=== PATIENT | female | born 1940 | race Caucasian/White ===

== ENCOUNTER 2016-11-17 20:29 | Observation (INO) | payer MEDICARE, OTHER ==
[2016-11-17 20:37] VITALS: BMI 31.1
--- NOTE | 2016-11-17 21:05 | ED PDOC ---
Arrival/HPI - General Historian: Patient, Family (Daughter, who translated for patient) - History of Present Illness Time/Duration: 1 week Symptom Course: Worsening Quality: Throbbing Context: Home - General Chief Complaint: Dizziness/Lightheaded Time Seen by Provider: 11/17/16 20:40 - History of Present Illness Narrative History of Present Illness (Text): 11/17/16 20:59 A 76 year old female presents to the emergency department complaining of generalized weakness with a mild headache and dizziness for 1 week. History obtained through daughter who translated for patient. Patient reports her headache worsened today and describes it as a severe throbbing sensation with 2 episodes of near-syncope. Patient notes nausea when symptoms worsen and palpitations. She took Motrin with no improvement of symptoms. Patient denies any fever, chills, blurred vision, vomiting, diarrhea, abdominal pain, urinary symptoms, chest pain, shortness of breath, lower extremity weakness, numbness or tingling, or any other complaints. (Cara Kemp) Past Medical History - Provider Review Nursing Documentation Reviewed: Yes - Infectious Disease Hx of Infectious Diseases: None - Cardiac Hx Hypertension: Yes - Gastrointestinal Hx Gall Bladder Disease: Yes (gallstones) - Psychiatric Hx Substance Use: No - Surgical History Hx Hysterectomy: Yes - Anesthesia Hx Anesthesia: Yes Hx Anesthesia Reactions: No Hx Malignant Hyperthermia: No Family/Social History - Physician Review Nursing Documentation Reviewed: Yes Family/Social History: No Known Family HX Smoking Status: Never Smoked Hx Alcohol Use: No Hx Substance Use: No Allergies/Home Meds Allergies/Adverse Reactions: Allergies Penicillins Adverse Reaction (Verified 11/17/16 20:37) ANAPHYLAXIS Home Medications: Home Meds Medication Instructions Recorded Confirmed hydroCHLOROthiazide [Microzide] 25 mg PO DAILY 11/17/16 11/17/16 Review of Systems - Physician Review All systems were reviewed & negative as marked: Yes - Review of Systems Constitutional: Other (Generalized weakness). absent: Fevers, Night Sweats Eyes: absent: Vision Changes Respiratory: absent: SOB Cardiovascular: Palpitations, Other (Near-syncope). absent: Chest Pain Gastrointestinal: Nausea. absent: Abdominal Pain, Diarrhea, Vomiting Genitourinary Female: absent: Dysuria, Frequency, Hematuria, Urine Output Changes Neurological: Headache, Dizziness. absent: Focal Weakness (/numbness/tingling) Physical Exam Vital Signs Reviewed: Yes Temperature: Afebrile Blood Pressure: Normal Pulse: Regular Respiratory Rate: Normal Appearance: Positive for: Well-Appearing, Non-Toxic, Comfortable Pain Distress: None Mental Status: Positive for: Alert and Oriented X 3 Finger Stick Blood Glucose: 106 - Systems Exam Head: Present: Atraumatic, Normocephalic Pupils: Present: PERRL Extroacular Muscles: Present: EOMI Conjunctiva: Present: Injected (bilateral conjunctival injection) Mouth: Present: Moist Mucous Membranes Pharnyx: No: ERYTHEMA, EXUDATE, TONSILS ENLARGED Neck: Present: Normal Range of Motion, Other (Supple). No: JVD, Bruit Respiratory/Chest: Present: Clear to Auscultation, Good Air Exchange. No: Respiratory Distress, Accessory Muscle Use Cardiovascular: Present: Regular Rate and Rhythm, Normal S1, S2. No: Murmurs Abdomen: Present: Normal Bowel Sounds. No: Tenderness, Distention, Peritoneal Signs Back: Present: Normal Inspection Upper Extremity: Present: Normal Inspection, Normal ROM, NORMAL PULSES, Neurovascularly Intact. No: Cyanosis, Edema Lower Extremity: Present: Normal Inspection, NORMAL PULSES, Normal ROM, Neurovascularly Intact. No: Edema, CALF TENDERNESS Neurological: Present: GCS=15, CN II-XII Intact, Speech Normal Skin: Present: Warm, Dry, Normal Color. No: Rashes Psychiatric: Present: Alert, Oriented x 3, Normal Insight, Normal Concentration Vital Signs Temp Pulse Resp BP Pulse Ox 11/18/16 00:07 78 18 135/71 99 11/17/16 20:50 98.2 F 88 18 144/71 100 Medical Decision Making - Lab Interpretations I have reviewed the lab results: Yes ED Course and Treatment: I was available for consultation during PA evaluation. The chart was reviewed by me, and I agree with disposition. The documented history was done by the physician lead burner apprentice. The documented physical exam was done by the physician lead burner apprentice. The documented procedures were done by the physician lead burner apprentice. (Gabriel Gusman) 11/17/16 20:59 A 76 year old female with headache, Patient notes generalized weakness, dizziness, near-syncope, nausea and palpitations. Plan: -- Head CT: FINDINGS: Brain: There are small karen-ventricular foci of hypodensity, likely representing small vessel ischemic disease in a patient this age. The acuity of the white matter disease is indeterminate. The white-short differentiation is preserved demonstrating no acute territorial type infarct. There is prominence of the ventricles and sulci, compatible with atrophy. No acute intracranial hemorrhage is seen. Midline shift: There is no midline shift. Ventricles: See above. Bones/joints: Scattered small hypodense foci or lesions are identified within the skull. The calvarium demonstrates no evidence for a depressed fracture. Soft tissues: No acute abnormality. Vasculature: There is atherosclerotic calcification of the cavernous internal carotid arteries. Sinuses: There is polypoid mucosal thickening of the left sphenoid sinus. Mastoid air cells: No mastoid effusion. IMPRESSION: 1. No acute intracranial hemorrhage or acute territorial type infarct. 2. There are small kraen-ventricular foci of hypodensity, likely representing small vessel ischemic disease in a patient this age. 3. Atrophy. 4. Scattered small hypodense foci or lesions are identified within the skull. Correlation with prior studies is recommended. 5. Paranasal sinus disease is noted above. -- Chest xray: wnl -- EKG: NSR at 61 b/m no st elevations. -- cbc: wnl -- cmp; wnl -- Urinalysis: wnl -- Tylenol po -- Reassess and disposition Progress Notes: pt non toxic. stable vitals asa given. 11/18/16 00:[address] to dr[address] Mahan service; no return call. after 1.5 hours; still no answer; will now admit to hospitalist service. case discussed with dr. mills; will admit observational status to remote tele for near syncope, headache impression; dizziness, near syncope, generalized weakness admit observational status; remote tele (Cara eKmp) - Lab Interpretations Lab Results: 11/17/16 21:00 11/17/16 21:00 Lab Results 11/17/16 21:44: Urine Color Yellow, Urine Appearance Clear, Urine pH 7.0, Ur Specific [place] 1.010, Urine Protein Negative, Urine Glucose (UA) Negative, Urine Ketones Negative, Urine Blood Negative, Urine Nitrate Negative, Urine Bilirubin Negative, Urine Urobilinogen 0.2, Ur Leukocyte Esterase Trace H, Urine RBC Negative, Urine WBC 0 - 2 11/17/16 21:00: WBC 5.7, RBC 4.25, Hgb 11.9 L, Hct 34.9 L, MCV 82.1, MCH 28.0, MCHC 34.1, RDW 12.6, Plt Count 150, MPV 10.9, Gran % 47.8 L, Lymph % (Auto) 43.5 H, [place] % (Auto) 5.8, Eos % (Auto) 2.5, Baso % (Auto) 0.4, Gran # 2.70, Lymph # 2.5, [place] # 0.3, Eos # 0.1, Baso # 0.02 11/17/16 21:00: Sodium 140, Potassium 4.2, Chloride 101, Carbon Dioxide 31, Anion Gap 12, BUN 19, Creatinine 0.8, Est GFR ( Amer) > 60, Est GFR (Non- Af Amer) > 60, Random Glucose 97, Calcium 9.5, Total Bilirubin 0.6, AST 28, ALT 19, Alkaline Phosphatase 74, Lactate Dehydrogenase 458, Total Creatine Kinase 83 , Troponin I < 0.01, Total Protein 7.1, Albumin 4.0, Globulin 3.1, Albumin/ Globulin Ratio 1.3 11/17/16 20:55: POC Glucose (mg/dL) 106 - RAD Interpretation Radiology Orders: 11/17/16 20:49 HEAD W/O CONTRAST [CT] Stat CHEST PORTABLE [RAD] Stat - Medication Orders Current Medication Orders: Discontinued Medications Acetaminophen (Tylenol 325mg Tab) 975 mg PO STAT STA Stop: 11/17/16 23:32 Last Admin: 11/17/16 23:49 Dose: 975 mg MAR Pain/Vitals Document 11/17/16 23:49 RD (Rec: 11/17/16 23:49 RD [id number]) Pain Reassessment Is This A Pain ReAssessment? No Sleep Is patient sleeping during reassessment? No Presence of Pain Presence of Pain Yes Aspirin (Aspirin) 325 mg PO STAT STA Stop: 11/17/16 23:32 Last Admin: 11/17/16 23:49 Dose: 325 mg - Scribe Statement The provider has reviewed the documentation as recorded by the Scribe - Scribe Statement Ramona White Provider Scribe Attestation: All medical record entries made by the Scribe were at my direction and personally dictated by me. I have reviewed the chart and agree that the record accurately reflects my personal performance of the history, physical exam, medical decision making, and the department course for this patient. I have also personally directed, reviewed, and agree with the discharge instructions and disposition. (Cara Kemp) Disposition/Present on Arrival - Present on Arrival Any Indicators Present on Arrival: No History of DVT/PE: No History of Uncontrolled Diabetes: No Urinary Catheter: No History of Decub. Ulcer: No History Surgical Site Infection Following: None - Disposition Have Diagnosis and Disposition been Completed?: Yes Disposition Time: 01:00 Patient Plan: Observation - Disposition Diagnosis: Near syncope Disposition: HOSPITALIZED Condition: FAIR Forms: [facility] ([place]ian)
[2016-11-17 21:16] LABS: BASO # 0.02 K/mm3 (0.0-2.0); BASO % 0.4 % (0.0-3.0); EOS # 0.1 (0.0-0.7); EOS % 2.5 % (1.5-5.0); GRAN # 2.7 (1.4-6.5); GRAN % 47.8 % (50.0-68.0); HEMATOCRIT 34.9 % (36.0-48.0); LYMPH # 2.5 (1.2-3.4); LYMPH % 43.5 % (22.0-35.0); MEAN CELL VOLUME 82.1 fl (80.0-105.0); MEAN CORPUSCULAR HGB CONC 34.1 g/dl (31.0-37.0); MEAN PLATELET VOLUME 10.9 fl (7.0-11.0); MONO # 0.3 (0.1-0.6); MONO % 5.8 % (1.0-6.0); RED CELL DISTRIBUTION WIDTH 12.6 % (11.5-14.5); WHITE BLOOD COUNT 5.7 10^3/ul (4.5-11.0)
[2016-11-17 21:30] LABS: ALB/GLOB RATIO 1.3 (1.1-1.8); ALKALINE PHOSPHATASE 74 U/L (38-126); ALT/SGPT 19 U/L (7-56); AST/SGOT 28 U/L (14-36); BILIRUBIN,TOTAL 0.6 mg/dL (0.2-1.3); BLOOD UREA NITROGEN 19 mg/dL (7-21); CALCIUM 9.5 mg/dL (8.4-10.5); CARBON DIOXIDE 31 mmol/L (21-33); CHLORIDE 101 mmol/L (98-107); GFR AFRICAN-AMERICAN > 60; GLUCOSE,RANDOM 97 mg/dL (70-110); POTASSIUM 4.2 mmol/L (3.6-5.0); SODIUM 140 mmol/L (132-148); TOTAL PROTEIN 7.1 g/dL (5.8-8.3)
[2016-11-17 21:50] LABS: TROPONIN I < 0.01 ng/mL
[2016-11-17 22:00] LABS: URINE BILIRUBIN NEGATIVE (NEGATIVE); URINE BLOOD NEGATIVE (NEGATIVE); URINE GLUCOSE (UA) NEGATIVE (NEGATIVE); URINE KETONE NEGATIVE (NEGATIVE); URINE LEUKOCYTE ESTERASE TRACE Leu/uL (NEGATIVE); URINE PROTEIN NEGATIVE mg/dL (<30 mg/dL); URINE UROBILINOGEN 0.2 E.U./dL (<1 E.U./dL)
[2016-11-17 22:01] LABS: URINE APPEARANCE CLEAR (CLEAR); URINE COLOR YELLOW (YELLOW)
[2016-11-17 22:09] LABS: URINE RBC NEGATIVE /hpf (0-2); URINE WBC 0 - 2 /hpf (0-6)
--- NOTE | 2016-11-17 23:22 | CT ---
EXAM: CT Head Without Intravenous Contrast EXAM DATE/TIME: 11/17/2016 8:49 PM CLINICAL HISTORY: The patient age is 76 years old and is female; Pain; Headache; Additional info: Headache/near syncope Facility exam id and description: Ct heads head w/o contrast TECHNIQUE: Axial computed tomography images of the head/brain without intravenous contrast. All CT scans at this facility use one or more dose reduction techniques, viz.: automated exposure control; ma/kV adjustment per patient size (including targeted exams where dose is matched to indication; i.e. head); or iterative reconstruction technique. COMPARISON: No relevant prior studies available. FINDINGS: Brain: There are small karen-ventricular foci of hypodensity, likely representing small vessel ischemic disease in a patient this age. The acuity of the white matter disease is indeterminate. The white-short differentiation is preserved demonstrating no acute territorial type infarct. There is prominence of the ventricles and sulci, compatible with atrophy. No acute intracranial hemorrhage is seen. Midline shift: There is no midline shift. Ventricles: See above. Bones/joints: Scattered small hypodense foci or lesions are identified within the skull. The calvarium demonstrates no evidence for a depressed fracture. Soft tissues: No acute abnormality. Vasculature: There is atherosclerotic calcification of the cavernous internal carotid arteries. Sinuses: There is polypoid mucosal thickening of the left sphenoid sinus. Mastoid air cells: No mastoid effusion. IMPRESSION: 1. No acute intracranial hemorrhage or acute territorial type infarct. 2. There are small karen-ventricular foci of hypodensity, likely representing small vessel ischemic disease in a patient this age. 3. Atrophy. 4. Scattered small hypodense foci or lesions are identified within the skull. Correlation with prior studies is recommended. 5. Paranasal sinus disease is noted above.
--- NOTE | 2016-11-18 01:59 | CP.PCM.HP ---
History of Present Illness - History of Present Illness History of Present Illness: H/P For IM - TKS DO, PGY-1 CC: Headache HPI: 76 F PMHx pertinent for HTN presenting with a week's duration of pounding 7/10 headache that radiates from her neck to her head to her left ear that comes and goes, and is associated with symptoms of ringing in her ear. Patient's daughter at bedside providing translation. Patient states that she took ibuprofen at home, which made it better, and that it was starting to dissipate, but that it returned today so she came to the ED. Pt and her daughter deny loss of or change in vision, ams, los, loss of motor function. They further deny episodes like this in the past. Pt denies photophobia, phonophobia, neck rigidity. Pt denies f/ch/cp/sob/n/v/d/dysuria/frequency/urgency/hematuria/hematochezia/ hematemesis PSHx: Pt denies PMHx: HTN All: PCN SocHx: Pt denies etoh, tobacco, illicits Hosp: First time at this facility FamHx: Non-contributory Meds: HCTZ Present on Admission - Present on Admission Any Indicators Present on Admission: No Review of Systems - Hematologic/Lymphatic Additional comments: ROS: Constitutional: pt denies fever, chills, generalized weakness ENT: pt denies dysphagia, otalgia, hearing deficit, rhinorrhea Eyes: pt denies sudden loss of vision, diplopia, blurred vision MSK: pt denies muscle stiffness, joint pain, extremity cramping Cardio: pt denies sob, heart murmur, cp Pulm: pt denies cough, hemoptysis, wheeze GI: pt denies loss of appetite, abdominal pain, constipation, melena, n/v/d : pt denies burning on urination, urinary frequency, hematuria, urinary urgency Neuro: +SEE HPI; pt denies paresis, paresthesia, dizziness, numbness, tingling Derm: pt denies skin changes, lesions, nail changes Endo: pt denies intolerance to heat/cold, diaphoresis, night sweats, polydipsia Psych: pt denies anxiety, depression, mood changes Past Patient History - Infectious Disease Hx of Infectious Diseases: None - Past Social History Smoking Status: Never Smoked - CARDIAC Hx Hypertension: Yes - GASTROINTESTINAL Hx Gall Bladder Disease: Yes (gallstones) - PSYCHIATRIC Hx Substance Use: No - SURGICAL HISTORY Hx Hysterectomy: Yes - ANESTHESIA Hx Anesthesia: Yes Hx Anesthesia Reactions: No Hx Malignant Hyperthermia: No Meds Allergies/Adverse Reactions: Allergies Allergy/AdvReac Type Severity Reaction Status Date / Time Penicillins AdvReac ANAPHYLAXIS Verified 11/17/16 20:37 Physical Exam - Additional Findings Additional findings: Phys Exam: VS as below Constitutional: a&o x 4, nad Head and Neck: neck supple, no jvd, trachea midline, carotid midline, no cervical/head mass Eyes: delia, nonicteric sclera, eom intact ENT: auditory acuity grossly intact, throat not congested, no nasal deformity Cardio: rrr, no m/r/g, no carotid bruit, nml s1, s2 Pulm: no accessory muscle use, equal nml breath sounds bilaterally, ctab Abd: s/nt/nd, nbs x 4 q, no palpable masses Derm: no rashes, no ulcers, no lesions Extr: no edema, no cyanosis, no calf tenderness, no lesions, no varicosities Neuro: cn II-XII grossly intact, ue and le 5/5 muscle strength bilaterally, no los ue, le bilaterally and core Results - Vital Signs Recent Vital Signs: Last Vital Signs Temp 98.2 F 11/17/16 20:50 Pulse 78 11/18/16 00:07 Resp 18 11/18/16 00:07 BP 135/71 11/18/16 00:07 Pulse Ox 99 11/18/16 00:07 - Labs Result Diagrams: 11/17/16 21:00 11/17/16 21:00 Labs: Laboratory Results - last 24 hr 11/17/16 11/17/16 11/17/16 20:55 21:00 21:00 WBC 5.7 RBC 4.25 Hgb 11.9 L Hct 34.9 L MCV 82.1 MCH 28.0 MCHC 34.1 RDW 12.6 Plt Count 150 MPV 10.9 Gran % 47.8 L Lymph % (Auto) 43.5 H [place] % (Auto) 5.8 Eos % (Auto) 2.5 Baso % (Auto) 0.4 Gran # 2.70 Lymph # 2.5 [place] # 0.3 Eos # 0.1 Baso # 0.02 Sodium 140 Potassium 4.2 Chloride 101 Carbon Dioxide 31 Anion Gap 12 BUN 19 Creatinine 0.8 Est GFR ( Amer) > 60 Est GFR (Non-Af Amer) > 60 POC Glucose (mg/dL) 106 Random Glucose 97 Calcium 9.5 Total Bilirubin 0.6 AST 28 ALT 19 Alkaline Phosphatase 74 Lactate Dehydrogenase 458 Total Creatine Kinase 83 Troponin I < 0.01 Total Protein 7.1 Albumin 4.0 Globulin 3.1 Albumin/Globulin Ratio 1.3 Urine Color Urine Appearance Urine pH Ur Specific [place] Urine Protein Urine Glucose (UA) Urine Ketones Urine Blood Urine Nitrate Urine Bilirubin Urine Urobilinogen Ur Leukocyte Esterase Urine RBC Urine WBC 11/17/16 21:44 WBC RBC Hgb Hct MCV MCH MCHC RDW Plt Count MPV Gran % Lymph % (Auto) [place] % (Auto) Eos % (Auto) Baso % (Auto) Gran # Lymph # [place] # Eos # Baso # Sodium Potassium Chloride Carbon Dioxide Anion Gap BUN Creatinine Est GFR ( Amer) Est GFR (Non-Af Amer) POC Glucose (mg/dL) Random Glucose Calcium Total Bilirubin AST ALT Alkaline Phosphatase Lactate Dehydrogenase Total Creatine Kinase Troponin I Total Protein Albumin Globulin Albumin/Globulin Ratio Urine Color Yellow Urine Appearance Clear Urine pH 7.0 Ur Specific [place] 1.010 Urine Protein Negative Urine Glucose (UA) Negative Urine Ketones Negative Urine Blood Negative Urine Nitrate Negative Urine Bilirubin Negative Urine Urobilinogen 0.2 Ur Leukocyte Esterase Trace H Urine RBC Negative Urine WBC 0 - 2 Assessment & Plan - Assessment and Plan (Free Text) Assessment: A/P 76 F with pounding, unilateral headache without photo/phonophobia. No neurological deficits Headache - Consider herpes zoster prodrome, trigeminal neuralgia and giant cell arteritis - VERY low suspicion for GCA - Can consider oral dose of prednisone - Initial labs and imaging insignificant - Consider neurological c/s VS o/p f/u - f/u ESR Hx/O HTN - Continue home HCTZ TKS DO PGY - 1. JANES Chris
[2016-11-18 02:08] VITALS: O2SAT 100
[2016-11-18] MEDS: Pantoprazole 40 mg EC Tab PO SCH (05:32)
--- NOTE | 2016-11-18 08:22 | RAD ---
HISTORY: palpitations, near syncope COMPARISON: No prior. FINDINGS: LUNGS: The lungs are clear. PLEURA: No significant pleural effusion identified, no pneumothorax apparent. CARDIOVASCULAR: Normal. OSSEOUS STRUCTURES: No significant abnormalities. VISUALIZED UPPER ABDOMEN: Normal. OTHER FINDINGS: None. IMPRESSION: No active pulmonary disease.
[2016-11-18 08:59] LABS: BASO # 0.02 K/mm3 (0.0-2.0); BASO % 0.4 % (0.0-3.0); EOS # 0.1 (0.0-0.7); EOS % 2.6 % (1.5-5.0); GRAN # 2.3 (1.4-6.5); GRAN % 43.1 % (50.0-68.0); HEMATOCRIT 34.3 % (36.0-48.0); LYMPH # 2.6 (1.2-3.4); LYMPH % 47.9 % (22.0-35.0); MEAN CELL VOLUME 82.7 fl (80.0-105.0); MEAN CORPUSCULAR HGB CONC 33.8 g/dl (31.0-37.0); MEAN PLATELET VOLUME 10.8 fl (7.0-11.0); MONO # 0.3 (0.1-0.6); RED CELL DISTRIBUTION WIDTH 12.7 % (11.5-14.5); WHITE BLOOD COUNT 5.3 10^3/ul (4.5-11.0)
--- NOTE | 2016-11-18 09:10 | CARD ---
APPROVED REPORT EKG Measurement Heart [id number] <Conclusion> Normal sinus rhythm Normal ECG
[2016-11-18 09:14] LABS: ALB/GLOB RATIO 1.2 (1.1-1.8); ALKALINE PHOSPHATASE 70 U/L (38-126); ALT/SGPT 26 U/L (7-56); AST/SGOT 24 U/L (14-36); BILIRUBIN,TOTAL 0.8 mg/dL (0.2-1.3); BLOOD UREA NITROGEN 17 mg/dL (7-21); CALCIUM 9.4 mg/dL (8.4-10.5); CARBON DIOXIDE 29 mmol/L (21-33); CHLORIDE 103 mmol/L (98-107); GFR AFRICAN-AMERICAN > 60; GLUCOSE,RANDOM 82 mg/dL (70-110); MAGNESIUM 1.8 mg/dL (1.7-2.2); PHOSPHOROUS 4.4 mg/dL (2.5-4.5); POTASSIUM 3.8 mmol/L (3.6-5.0); SODIUM 141 mmol/L (132-148); TOTAL PROTEIN 6.7 g/dL (5.8-8.3)
--- NOTE | 2016-11-18 11:23 | CP.PCM.CON ---
<Anjana Michael - Last Filed: 11/18/16 12:09> History of Present Illness - History of Present Illness History of Present Illness: Neurology Consult Note for Julio César Burgos PGY2 Reason for consult: Headache/tinnitus This is a 76Y female with PMH of HTN here for headache x 1 week. Patient reportedly speaks Swahili only and family is not at bedside. Nurse who speaks Swahli at bedside for communication. The headache is pounding in nature and radiated from L forehead to back of neck. It is intermittent in nature and is not associated with aura, vision changes, weakness, numbness/tingling. She does have dizziness when she has headache. It is described as more of a lightheadedness rather than vertigo. Patient does complain of tinnitus which is constant, but denies decreased hearing. She reports her headache is gone now. PMH: HTN PSH: Denies Home meds: HCTZ All: Penicillin SH: Denies EtOH, drug or tobacco use Review of Systems - Review of Systems Review of Systems: + Headache, tinnitus Negative for CP, SOB, n/v/d, numbness/tingling, fever or chills. Past Patient History - Infectious Disease Hx of Infectious Diseases: None - Past Social History Smoking Status: Unknown If Ever Smoked - CARDIAC Hx Hypertension: Yes - MUSCULOSKELETAL/RHEUMATOLOGICAL Hx Falls: (unknown) - GASTROINTESTINAL Hx Gall Bladder Disease: Yes (gallstones) - PSYCHIATRIC Hx Substance Use: No - SURGICAL HISTORY Hx Hysterectomy: Yes - ANESTHESIA Hx Anesthesia: Yes Hx Anesthesia Reactions: No Hx Malignant Hyperthermia: No Meds Allergies/Adverse Reactions: Allergies Allergy/AdvReac Type Severity Reaction Status Date / Time Penicillins AdvReac ANAPHYLAXIS Verified 11/17/16 20:37 - Medications Medications: Current Medications Heparin Sodium (Porcine) (Heparin) 5,000 units SC Q8 RASHARD PRN Reason: Protocol Last Admin: 11/18/16 05:32 Dose: 5,000 units Hydrochlorothiazide (Hydrodiuril) 25 mg PO DAILY RASHARD Pantoprazole Sodium (Protonix Ec Tab) 40 mg PO 0600 RASHARD Last Admin: 11/18/16 05:32 Dose: 40 mg Physical Exam - Constitutional Appears: No Acute Distress - Head Exam Head Exam: ATRAUMATIC, NORMAL INSPECTION, NORMOCEPHALIC - Eye Exam Eye Exam: EOMI, Normal appearance, PERRL Pupil Exam: NORMAL ACCOMODATION, PERRL - ENT Exam ENT Exam: Mucous Membranes Moist - Respiratory Exam Respiratory Exam: Clear to Auscultation Bilateral, NORMAL BREATHING PATTERN. absent: Rales, Rhonchi, Wheezes - Cardiovascular Exam Cardiovascular Exam: REGULAR RHYTHM, +S1, +S2. absent: Gallop, Rubs, Systolic Murmur - GI/Abdominal Exam GI & Abdominal Exam: Normal Bowel Sounds, Soft. absent: Guarding, Rebound, Rigid, Tenderness - Extremities Exam Extremities exam: Positive for: normal inspection. Negative for: calf tenderness, pedal edema - Neurological Exam Neurological exam: Alert, CN II-XII Intact - Psychiatric Exam Psychiatric exam: Normal Affect, Normal Mood - Skin Skin Exam: Dry, Intact, Normal Color, Warm Results - Vital Signs Recent Vital Signs: Last Vital Signs Temp 97.5 F L 11/18/16 04:11 Pulse 52 L 11/18/16 04:11 Resp 18 11/18/16 04:11 BP 120/69 11/18/16 04:11 Pulse Ox 100 11/18/16 02:07 - Labs Result Diagrams: 11/18/16 08:30 11/18/16 08:30 Labs: Laboratory Results - last 24 hr 11/18/16 11/18/16 11/18/16 02:28 08:30 08:30 WBC 5.3 RBC 4.15 Hgb 11.6 L Hct 34.3 L MCV 82.7 MCH 28.0 MCHC 33.8 RDW 12.7 Plt Count 150 MPV 10.8 Gran % 43.1 L Lymph % (Auto) 47.9 H [place] % (Auto) 6.0 Eos % (Auto) 2.6 Baso % (Auto) 0.4 Gran # 2.30 Lymph # 2.6 [place] # 0.3 Eos # 0.1 Baso # 0.02 ESR 15 Sodium 141 Potassium 3.8 Chloride 103 Carbon Dioxide 29 Anion Gap 13 BUN 17 Creatinine 0.8 Est GFR ( Amer) > 60 Est GFR (Non-Af Amer) > 60 Random Glucose 82 Calcium 9.4 Phosphorus 4.4 Magnesium 1.8 Total Bilirubin 0.8 AST 24 ALT 26 Alkaline Phosphatase 70 Total Protein 6.7 Albumin 3.7 Globulin 3.0 Albumin/Globulin Ratio 1.2 Assessment & Plan - Assessment and Plan (Free Text) Assessment: This is a 76Y female with PMH of HTN here for headache x 1 week. Headache described as migraines without aura relieved with ibuprofen. Head CT noted to be negative for acute pathology. ESR within normal limits. Plan: - CRP - Fiorecet prn headache - Physical therapy - Occupational therapy Case seen, discussed and reviewed with Dr. Ness. Julio César Michael PGY2 - Date & Time Date: 11/18/16 Time: 12:16 <Memo Ness - Last Filed: 11/18/16 13:09> Meds - Medications Medications: Current Medications Acetaminophen/Butalbital/Caffeine (Fioricet) 1 tab PO Q4H PRN PRN Reason: Headache Heparin Sodium (Porcine) (Heparin) 5,000 units SC Q8 RASHARD PRN Reason: Protocol Last Admin: 11/18/16 05:32 Dose: 5,000 units Hydrochlorothiazide (Hydrodiuril) 25 mg PO DAILY [facility] Last Admin: 11/18/16 11:38 Dose: 25 mg Pantoprazole Sodium (Protonix Ec Tab) 40 mg PO 0600 [facility] Last Admin: 11/18/16 05:32 Dose: 40 mg Results - Vital Signs Recent Vital Signs: Last Vital Signs Temp 97.1 F L 11/18/16 12:00 Pulse 55 L 11/18/16 12:00 Resp 20 11/18/16 12:00 BP 140/72 11/18/16 12:00 Pulse Ox 100 11/18/16 02:07 - Labs Result Diagrams: 11/18/16 08:30 11/18/16 08:30 Labs: Laboratory Results - last 24 hr 11/18/16 11/18/16 11/18/16 02:28 08:30 08:30 WBC 5.3 RBC 4.15 Hgb 11.6 L Hct 34.3 L MCV 82.7 MCH 28.0 MCHC 33.8 RDW 12.7 Plt Count 150 MPV 10.8 Gran % 43.1 L Lymph % (Auto) 47.9 H [place] % (Auto) 6.0 Eos % (Auto) 2.6 Baso % (Auto) 0.4 Gran # 2.30 Lymph # 2.6 [place] # 0.3 Eos # 0.1 Baso # 0.02 ESR 15 Sodium 141 Potassium 3.8 Chloride 103 Carbon Dioxide 29 Anion Gap 13 BUN 17 Creatinine 0.8 Est GFR ( Amer) > 60 Est GFR (Non-Af Amer) > 60 Random Glucose 82 Calcium 9.4 Phosphorus 4.4 Magnesium 1.8 Total Bilirubin 0.8 AST 24 ALT 26 Alkaline Phosphatase 70 Total Protein 6.7 Albumin 3.7 Globulin 3.0 Albumin/Globulin Ratio 1.2 Attending/Attestation - Attestation I have personally seen and examined this patient.: Yes I have fully participated in the care of the patient.: Yes I have reviewed all pertinent clinical information: Yes
[2016-11-18] MEDS ORDERED: Apap-Butalbital-Caffeine 325-50-40mg Tab PO PRN (12:17)
[2016-11-19] MEDS: Pantoprazole 40 mg EC Tab PO SCH (06:27)
[2016-11-19 08:51] LABS: BASO # 0.02 K/mm3 (0.0-2.0); BASO % 0.4 % (0.0-3.0); EOS # 0.2 (0.0-0.7); EOS % 3.6 % (1.5-5.0); GRAN # 2.31 (1.4-6.5); HEMATOCRIT 35.7 % (36.0-48.0); LYMPH # 2.6 (1.2-3.4); LYMPH % 46.7 % (22.0-35.0); MEAN CELL VOLUME 82.1 fl (80.0-105.0); MEAN CORPUSCULAR HEMOGLOBIN 27.8 pg (25.0-35.0); MEAN CORPUSCULAR HGB CONC 33.9 g/dl (31.0-37.0); MEAN PLATELET VOLUME 11.3 fl (7.0-11.0); MONO # 0.4 (0.1-0.6); MONO % 7.3 % (1.0-6.0); RED CELL DISTRIBUTION WIDTH 12.7 % (11.5-14.5); WHITE BLOOD COUNT 5.5 10^3/ul (4.5-11.0)
[2016-11-19 10:44] LABS: ALB/GLOB RATIO 1.4 (1.1-1.8); ALKALINE PHOSPHATASE 79 U/L (38-126); ALT/SGPT 15 U/L (7-56); AST/SGOT 22 U/L (14-36); BILIRUBIN,TOTAL 0.7 mg/dL (0.2-1.3); BLOOD UREA NITROGEN 18 mg/dL (7-21); CARBON DIOXIDE 24 mmol/L (21-33); CHLORIDE 109 mmol/L (98-107); GFR AFRICAN-AMERICAN > 60; GLUCOSE,RANDOM 80 mg/dL (70-110); MAGNESIUM 1.7 mg/dL (1.7-2.2); PHOSPHOROUS 3.8 mg/dL (2.5-4.5); POTASSIUM 4.1 mmol/L (3.6-5.0); SODIUM 146 mmol/L (132-148); TOTAL PROTEIN 6.4 g/dL (5.8-8.3)
[2016-11-19 12:16] VITALS: BP 133/67; RESP 18; TEMP 98.1
--- NOTE | 2016-11-19 14:02 | CP.PCM.DIS ---
<MAITE RUBIN - Last Filed: 11/19/16 13:55> Provider - Provider Date of Admission: 11/18/16 01:00 Attending physician: Geraldo Forrest MD Consults: Neuro: Grover Time Spent in preparation of Discharge (in minutes): 45 Hospital Course - Lab Results Lab Results: Most Recent Lab Values WBC 5.5 10^3/ul (4.5-11.0) 11/19/16 08:00 RBC 4.35 10^6/uL (3.5-6.1) 11/19/16 08:00 Hgb 12.1 g/dL (12.0-16.0) 11/19/16 08:00 Hct 35.7 % (36.0-48.0) L 11/19/16 08:00 MCV 82.1 fl (80.0-105.0) 11/19/16 08:00 MCH 27.8 pg (25.0-35.0) 11/19/16 08:00 MCHC 33.9 g/dl (31.0-37.0) 11/19/16 08:00 RDW 12.7 % (11.5-14.5) 11/19/16 08:00 Plt Count 154 10^3/uL (120.0-450.0) 11/19/16 08:00 MPV 11.3 fl (7.0-11.0) H 11/19/16 08:00 Gran % 42.0 % (50.0-68.0) L 11/19/16 08:00 Lymph % (Auto) 46.7 % (22.0-35.0) H 11/19/16 08:00 [place] % (Auto) 7.3 % (1.0-6.0) H 11/19/16 08:00 Eos % (Auto) 3.6 % (1.5-5.0) 11/19/16 08:00 Baso % (Auto) 0.4 % (0.0-3.0) 11/19/16 08:00 Gran # 2.31 (1.4-6.5) 11/19/16 08:00 Lymph # 2.6 (1.2-3.4) 11/19/16 08:00 [place] # 0.4 (0.1-0.6) 11/19/16 08:00 Eos # 0.2 (0.0-0.7) 11/19/16 08:00 Baso # 0.02 K/mm3 (0.0-2.0) 11/19/16 08:00 ESR 15 mm/hr (0.0-20.0) 11/18/16 02:28 Sodium 146 mmol/L (132-148) 11/19/16 08:00 Potassium 4.1 mmol/L (3.6-5.0) 11/19/16 08:00 Chloride 109 mmol/L (98-107) H 11/19/16 08:00 Carbon Dioxide 24 mmol/L (21-33) 11/19/16 08:00 Anion Gap 17 (10-20) 11/19/16 08:00 BUN 18 mg/dL (7-21) 11/19/16 08:00 Creatinine 0.9 mg/dL (0.5-1.4) 11/19/16 08:00 Est GFR ( Amer) > 60 11/19/16 08:00 Est GFR (Non-Af Amer) > 60 11/19/16 08:00 POC Glucose (mg/dL) 106 mg/dL (65-110) 11/17/16 20:55 Random Glucose 80 mg/dL (70-110) 11/19/16 08:00 Calcium 10.0 mg/dL (8.4-10.5) 11/19/16 08:00 Phosphorus 3.8 mg/dL (2.5-4.5) 11/19/16 08:00 Magnesium 1.7 mg/dL (1.7-2.2) 11/19/16 08:00 Total Bilirubin 0.7 mg/dL (0.2-1.3) 11/19/16 08:00 AST 22 U/L (14-36) 11/19/16 08:00 ALT 15 U/L (7-56) 11/19/16 08:00 Alkaline Phosphatase 79 U/L (38-126) 11/19/16 08:00 Lactate Dehydrogenase 458 U/L (333-699) 11/17/16 21:00 Total Creatine Kinase 83 U/L (35-230) 11/17/16 21:00 Troponin I < 0.01 ng/mL 11/17/16 21:00 C-React Prot High Sens 3.89 mg/L (1.00-3.00) H 11/19/16 06:00 Total Protein 6.4 g/dL (5.8-8.3) 11/19/16 08:00 Albumin 3.7 g/dL (3.0-4.8) 11/19/16 08:00 Globulin 2.7 gm/dL 11/19/16 08:00 Albumin/Globulin Ratio 1.4 (1.1-1.8) 11/19/16 08:00 Urine Color Yellow (YELLOW) 11/17/16 21:44 Urine Appearance Clear (CLEAR) 11/17/16 21:44 Urine pH 7.0 (4.7-8.0) 11/17/16 21:44 Ur Specific Thayer 1.010 (1.005-1.035) 11/17/16 21:44 Urine Protein Negative mg/dL (<30 mg/dL) 11/17/16 21:44 Urine Glucose (UA) Negative mg/dL (NEGATIVE) 11/17/16 21:44 Urine Ketones Negative mg/dL (NEGATIVE) 11/17/16 21:44 Urine Blood Negative (NEGATIVE) 11/17/16 21:44 Urine Nitrate Negative (NEGATIVE) 11/17/16 21:44 Urine Bilirubin Negative (NEGATIVE) 11/17/16 21:44 Urine Urobilinogen 0.2 E.U./dL (<1 E.U./dL) 11/17/16 21:44 Ur Leukocyte Esterase Trace Lis/uL (NEGATIVE) H 11/17/16 21:44 Urine RBC Negative /hpf (0-2) 11/17/16 21:44 Urine WBC 0 - 2 /hpf (0-6) 11/17/16 21:44 - Hospital Course Hospital Course: 76 F PMHx pertinent for HTN presented with a week's duration of pounding 7/10 headache that radiated from her neck to her head to her left ear that comes and goes, and is associated with symptoms of ringing in her ear. Patient's daughter at bedside provided translation. Patient stated that she took ibuprofen at home, which made it better, and that it was starting to dissipate, but that it returned so she came to the ED. Pt and her daughter deny loss of or change in vision, ams, los, loss of motor function. They further deny episodes like this in the past. Pt denied photophobia, phonophobia, neck rigidity. In the ED, labs and imaging were obtained. Labs were unremarkable Head CT showed no acute intracranial hemorrhage, small vessel ischemic disease, atrophy, scattered small hypodense foci/lesions in skull. EKG and CXR were normal. Pt was admitted for evaluation and treatment for pounding, unilateral headache without photo/phonophobia. Neuro was consulted and recommended Fiorecet prn headache and PT/OT. Pt was seen and examined at bedside today. Pt states that her headache had resolved and controlled well with medications. Pt did c/o of tinnitus. Pt denied CP, SOB, n/v/d, fever, chills, abdominal pain, dizziness, or fatigue. Pt medically stable and discharged today. Pt will resume home medications and given Rx for fiorocet. Discharge Exam - Head Exam Head Exam: ATRAUMATIC, NORMAL INSPECTION, NORMOCEPHALIC - Eye Exam Eye Exam: EOMI, PERRL - ENT Exam ENT Exam: Mucous Membranes Moist - Neck Exam Neck exam: Full Rom - Respiratory Exam Respiratory Exam: Clear to PA & Lateral. absent: Rales, Rhonchi, Wheezes, Respiratory Distress - Cardiovascular Exam Cardiovascular Exam: RRR. absent: Gallop, Rubs - GI/Abdominal Exam GI & Abdominal Exam: Soft. absent: Firm, Guarding, Tenderness - Neurological Exam Neurological exam: Alert, Oriented x3 - Psychiatric Exam Psychiatric exam: Normal Affect, Normal Mood - Skin Skin Exam: Dry, Intact, Normal Color Discharge Plan - Discharge Medications Prescriptions: Acetaminophen/Butalbital/Caf [Fioricet] 1 tab PO Q4H PRN #5 tab PRN Reason: Headache - Follow Up Plan Condition: FAIR Disposition: HOME/ ROUTINE Instructions: Viral Pneumonia (GEN), Influenza (GEN), How To Wash Your Hands ( GEN), Hypertension (GEN), Near Syncope (ED), Fall Prevention (DC) Additional Instructions: 1. Follow up with PMD within 1 week 2. Follow up with neurology within 1 week 3. Take medications as prescribed 4. Return to ED if symptoms worsen Referrals: Sp Ness MD [Staff Provider] - <Gerald Salinas - Last Filed: 11/20/16 07:56> Provider - Provider Date of Admission: 11/18/16 01:00 Attending physician: Geraldo Forrest MD covering for dr forrest to go home today as per neuros ok walking well seen w/ family wanting to take her home discussed w/ resident and nurse and family should follow up w/ pmd in next 3 days went over meds w/ resident Hospital Course - Lab Results Lab Results: Most Recent Lab Values WBC 5.5 10^3/ul (4.5-11.0) 11/19/16 08:00 RBC 4.35 10^6/uL (3.5-6.1) 11/19/16 08:00 Hgb 12.1 g/dL (12.0-16.0) 11/19/16 08:00 Hct 35.7 % (36.0-48.0) L 11/19/16 08:00 MCV 82.1 fl (80.0-105.0) 11/19/16 08:00 MCH 27.8 pg (25.0-35.0) 11/19/16 08:00 MCHC 33.9 g/dl (31.0-37.0) 11/19/16 08:00 RDW 12.7 % (11.5-14.5) 11/19/16 08:00 Plt Count 154 10^3/uL (120.0-450.0) 11/19/16 08:00 MPV 11.3 fl (7.0-11.0) H 11/19/16 08:00 Gran % 42.0 % (50.0-68.0) L 11/19/16 08:00 Lymph % (Auto) 46.7 % (22.0-35.0) H 11/19/16 08:00 [place] % (Auto) 7.3 % (1.0-6.0) H 11/19/16 08:00 Eos % (Auto) 3.6 % (1.5-5.0) 11/19/16 08:00 Baso % (Auto) 0.4 % (0.0-3.0) 11/19/16 08:00 Gran # 2.31 (1.4-6.5) 11/19/16 08:00 Lymph # 2.6 (1.2-3.4) 11/19/16 08:00 [place] # 0.4 (0.1-0.6) 11/19/16 08:00 Eos # 0.2 (0.0-0.7) 11/19/16 08:00 Baso # 0.02 K/mm3 (0.0-2.0) 11/19/16 08:00 ESR 15 mm/hr (0.0-20.0) 11/18/16 02:28 Sodium 146 mmol/L (132-148) 11/19/16 08:00 Potassium 4.1 mmol/L (3.6-5.0) 11/19/16 08:00 Chloride 109 mmol/L (98-107) H 11/19/16 08:00 Carbon Dioxide 24 mmol/L (21-33) 11/19/16 08:00 Anion Gap 17 (10-20) 11/19/16 08:00 BUN 18 mg/dL (7-21) 11/19/16 08:00 Creatinine 0.9 mg/dL (0.5-1.4) 11/19/16 08:00 Est GFR ( Amer) > 60 11/19/16 08:00 Est GFR (Non-Af Amer) > 60 11/19/16 08:00 POC Glucose (mg/dL) 106 mg/dL (65-110) 11/17/16 20:55 Random Glucose 80 mg/dL (70-110) 11/19/16 08:00 Calcium 10.0 mg/dL (8.4-10.5) 11/19/16 08:00 Phosphorus 3.8 mg/dL (2.5-4.5) 11/19/16 08:00 Magnesium 1.7 mg/dL (1.7-2.2) 11/19/16 08:00 Total Bilirubin 0.7 mg/dL (0.2-1.3) 11/19/16 08:00 AST 22 U/L (14-36) 11/19/16 08:00 ALT 15 U/L (7-56) 11/19/16 08:00 Alkaline Phosphatase 79 U/L (38-126) 11/19/16 08:00 Lactate Dehydrogenase 458 U/L (333-699) 11/17/16 21:00 Total Creatine Kinase 83 U/L (35-230) 11/17/16 21:00 Troponin I < 0.01 ng/mL 11/17/16 21:00 C-React Prot High Sens 3.89 mg/L (1.00-3.00) H 11/19/16 06:00 Total Protein 6.4 g/dL (5.8-8.3) 11/19/16 08:00 Albumin 3.7 g/dL (3.0-4.8) 11/19/16 08:00 Globulin 2.7 gm/dL 11/19/16 08:00 Albumin/Globulin Ratio 1.4 (1.1-1.8) 11/19/16 08:00 Urine Color Yellow (YELLOW) 11/17/16 21:44 Urine Appearance Clear (CLEAR) 11/17/16 21:44 Urine pH 7.0 (4.7-8.0) 11/17/16 21:44 Ur Specific [place] 1.010 (1.005-1.035) 11/17/16 21:44 Urine Protein Negative mg/dL (<30 mg/dL) 11/17/16 21:44 Urine Glucose (UA) Negative mg/dL (NEGATIVE) 11/17/16 21:44 Urine Ketones Negative mg/dL (NEGATIVE) 11/17/16 21:44 Urine Blood Negative (NEGATIVE) 11/17/16 21:44 Urine Nitrate Negative (NEGATIVE) 11/17/16 21:44 Urine Bilirubin Negative (NEGATIVE) 11/17/16 21:44 Urine Urobilinogen 0.2 E.U./dL (<1 E.U./dL) 11/17/16 21:44 Ur Leukocyte Esterase Trace Lis/uL (NEGATIVE) H 11/17/16 21:44 Urine RBC Negative /hpf (0-2) 11/17/16 21:44 Urine WBC 0 - 2 /hpf (0-6) 11/17/16 21:44
[2016-11-19 16:09] VITALS: PULSE 82
== END 2016-11-19 16:22 | disposition home or self-care (01) ==
LOC: ED 20:29 → ERH 11-18 01:00 → 2RNO 11-18 03:49
PROVIDERS: ADMIT Internal Medicine; ATTEND Internal Medicine
DX: G43.009 Migraine without aura, not intractable, without status migrainosus (principal); I10 Essential (primary) hypertension; Z88.0 Allergy status to penicillin
CPT/HCPCS: 36415; 70450; 71010; 80053; 81001; 82550; 82948; 83615; 83735; 84100; 84484; 85025; 85651; 86140; 87086; 93005; 97116; 97161; 99285; G0378; G8978; G8979; G8980; J1644

== ENCOUNTER 2018-03-03 11:45 | Emergency (ER) | payer MEDICARE, OTHER ==
[2018-03-03 11:45] VITALS: BMI 31.1
[2018-03-03] MEDS ORDERED: Sodium Chloride 0.9% 1,000 ML IV SCH (12:45)
--- NOTE | 2018-03-03 13:04 | ED PDOC ---
Arrival/HPI - General Chief Complaint: Headache Historian: Patient - History of Present Illness Narrative History of Present Illness (Text): 03/03/18 12:38 78 year old female, whose past medical history includes hypertension, presents to the emergency department accompanied by family complaining of worsening headache, dizziness, and generalized weakness over the past 1-2 weeks. Patient also reports intermittent cough. Patient has a history of headaches. She recently had a endoscopy and a colonoscopy that were negative. Patient recently was in [place] 4 months ago and was given Lariam once a week for Malaria while there. Patient took Aleve with relief. Patient did not get her flu shot this year. Patient denies any fever, chills, chest pain, shortness of breath, nausea, vomiting, diarrhea, urinary symptoms, back pain, neck pain, or any other com plaints. Time/Duration: Other (1-2 weeks) Symptom Onset: Gradual Symptom Course: Worsening Activities at Onset: Light Context: Home Past Medical History - Provider Review Nursing Documentation Reviewed: Yes - Infectious Disease Hx of Infectious Diseases: None - Reproductive Menopause: Yes - Cardiac Hx Cardiac Disorders: Yes Hx Hypertension: Yes - Pulmonary Hx Respiratory Disorders: No - Neurological Hx Neurological Disorder: No - HEENT Hx HEENT Disorder: No - Renal Hx Renal Disorder: No - Endocrine/Metabolic Hx Endocrine Disorders: No - Hematological/Oncological Hx Blood Disorders: No - Integumentary Hx Dermatological Disorder: No - Musculoskeletal/Rheumatological Hx Musculoskeletal Disorders: Yes Hx Falls: (unknown) Hx Osteoporosis: Yes - Gastrointestinal Hx Gastrointestinal Disorders: Yes Hx Gall Bladder Disease: Yes (gallstones) Hx Gastroesophageal Reflux: Yes - Genitourinary/Gynecological Hx Genitourinary Disorders: No - Psychiatric Hx Psychophysiologic Disorder: No Hx Substance Use: No - Surgical History Hx Cholecystectomy: Yes Hx Hysterectomy: Yes - Anesthesia Hx Anesthesia: Yes Hx Anesthesia Reactions: No Hx Malignant Hyperthermia: No Family/Social History - Physician Review Nursing Documentation Reviewed: Yes Family/Social History: No Known Family HX Smoking Status: Unknown If Ever Smoked Hx Alcohol Use: No Hx Substance Use: No Allergies/Home Meds Allergies/Adverse Reactions: Allergies Penicillins Adverse Reaction (Verified 11/17/16 20:37) ANAPHYLAXIS Home Medications: Home Meds Medication Instructions Recorded Confirmed hydroCHLOROthiazide [Microzide] 25 mg PO DAILY 11/17/16 03/03/18 Alendronate [Fosamax] 1 tab PO QWK 12/26/18 01/12/19 Review of Systems - Physician Review All systems were reviewed & negative as marked: Yes - Review of Systems Constitutional: absent: Fevers, Other (Chills) Respiratory: Cough. absent: SOB Cardiovascular: absent: Chest Pain Gastrointestinal: absent: Abdominal Pain, Nausea Genitourinary Female: absent: Dysuria, Frequency, Hematuria Musculoskeletal: absent: Back Pain, Neck Pain Neurological: Headache, Dizziness, Other (generalized weakness) Physical Exam Vital Signs Reviewed: Yes Vital Signs Temp Pulse Resp BP Pulse Ox 03/03/18 12:01 97.7 F 66 16 143/82 95 Temperature: Afebrile Blood Pressure: Normal Pulse: Regular Respiratory Rate: Normal Appearance: Positive for: Well-Appearing, Non-Toxic, Comfortable Pain Distress: None Mental Status: Positive for: Alert and Oriented X 3 - Systems Exam Head: Present: Atraumatic, Normocephalic Pupils: Present: PERRL Extroacular Muscles: Present: EOMI Conjunctiva: Present: Normal Mouth: Present: Moist Mucous Membranes Neck: Present: Normal Range of Motion Respiratory/Chest: Present: Clear to Auscultation, Good Air Exchange. No: Respiratory Distress, Accessory Muscle Use Cardiovascular: Present: Regular Rate and Rhythm, Normal S1, S2. No: Murmurs Abdomen: No: Tenderness, Distention, Peritoneal Signs Back: Present: Normal Inspection Upper Extremity: Present: Normal Inspection. No: Cyanosis, Edema Lower Extremity: Present: Normal Inspection. No: Edema Neurological: Present: GCS=15, CN II-XII Intact, Speech Normal Skin: Present: Warm, Dry, Normal Color. No: Rashes Psychiatric: Present: Alert, Oriented x 3, Normal Insight, Normal Concentration Medical Decision Making ED Course and Treatment: 03/03/18 12:38 Impression: 79 year old female presents complaining of cough, headache, dizziness, and generalized weakness for the past 1-2 weeks. Plan: -- EKG -- Labs -- CXR -- IV Fluids, Toradol -- Urinalysis -- Reassess and disposition Progress Notes: EXAM: CXR Dicatated by: Gerald Jacob MD Dictated Date/Time: 03/03/18 7189 IMPRESSION: No active disease. No signficant interval change comapred to the prior examination(s). 03/03/18 13:42 EKG shows Sinus at 61 BPM with PACs. Interpreted by me. 03/03/18 14:25 On re-evaluation, patient is in no acute distress. I have discussed the results and plan with the patient, who expresses understanding. Patient in agreement with plan to be discharged home. Patient is stable for discharge. Patient was instructed to follow up with physician or return if symptoms worsen or new concerning symptoms arise. - Lab Interpretations I have reviewed the lab results: Yes - RAD Interpretation Policy Intern: Radiologist - EKG Interpretation Interpreted by ED Physician: Yes Type: 12 lead EKG - Scribe Statement The provider has reviewed the documentation as recorded by the Julioibdede Spear Provider Scribe Attestation: All medical record entries made by the Scribe were at my direction and personally dictated by me. I have reviewed the chart and agree that the record accurately reflects my personal performance of the history, physical exam, medical decision making, and the department course for this patient. I have also personally directed, reviewed, and agree with the discharge instructions and disposition. Disposition/Present on Arrival - Present on Arrival Any Indicators Present on Arrival: No History of DVT/PE: No History of Uncontrolled Diabetes: No Urinary Catheter: No History of Decub. Ulcer: No History Surgical Site Infection Following: None - Disposition Have Diagnosis and Disposition been Completed?: Yes Diagnosis: Musculoskeletal pain Disposition: HOME/ ROUTINE Disposition Time: 13:40 Condition: GOOD Discharge Instructions (ExitCare): Muscle and Bone Pain (DC) Additional Instructions: TRISTIN GALO, thank you for letting us take care of you today. The emergency medical care you received today was directed at your acute symptoms. If you were prescribed any medication, please fill it and take as directed. It may take several days for your symptoms to resolve. Return to the Emergency Department if your symptoms worsen, do not improve, or if you have any other problems. Please contact your doctor or call one of the physicians/clinics you have been referred to that are listed on the Patient Visit Information form that is included in your discharge packet. Bring any paperwork you were given at discharge with you along with any medications you are taking to your follow up visit. Our treatment cannot replace ongoing medical care by a primary care provider outside of the emergency department. Thank you for allowing the [facility] team to be part of your care today. Follow up with your primary care doctor in 3-4 days for re-evaluation and further management. Prescriptions: Ibuprofen [Motrin] 600 mg PO Q6 PRN #20 tab PRN Reason: Pain, Moderate (4-7) Referrals: Dio Rock MD [Primary Care Provider] - Follow up with primary Forms: [employer] (Romanian)
[2018-03-03 13:31] LABS: BASO # 0.02 K/mm3 (0.0-2.0); BASO % 0.4 % (0.0-3.0); EOS # 0.1 (0.0-0.7); EOS % 2.5 % (1.5-5.0); GRAN # 3.51 (1.4-6.5); GRAN % 61.5 % (50.0-68.0); HEMOGLOBIN 12.3 g/dL (12.0-16.0); LYMPH # 1.7 (1.2-3.4); MEAN CELL VOLUME 82.8 fl (80.0-105.0); MEAN CORPUSCULAR HEMOGLOBIN 27.5 pg (25.0-35.0); MEAN CORPUSCULAR HGB CONC 33.2 g/dl (31.0-37.0); MEAN PLATELET VOLUME 10.8 fl (7.0-11.0); MONO # 0.3 (0.1-0.6); MONO % 5.6 % (1.0-6.0); RBC 4.47 10^6/uL (3.5-6.1); RED CELL DISTRIBUTION WIDTH 13.5 % (11.5-14.5); WHITE BLOOD COUNT 5.7 10^3/uL (4.5-11.0)
[2018-03-03 13:34] LABS: PH,URINE 6.5 (4.7-8.0); URINE BILIRUBIN NEGATIVE (NEGATIVE); URINE BLOOD NEGATIVE (NEGATIVE); URINE GLUCOSE (UA) NEGATIVE (NEGATIVE); URINE LEUKOCYTE ESTERASE NEGATIVE Leu/uL (NEGATIVE); URINE PROTEIN NEGATIVE mg/dL (<30 mg/dL); URINE UROBILINOGEN 0.2 E.U./dL (<1 E.U./dL)
[2018-03-03 13:36] LABS: ALB/GLOB RATIO 1.2 (1.1-1.8); ALBUMIN 4.1 g/dL (3.0-4.8); ALT/SGPT 21 U/L (7-56); AST/SGOT 27 U/L (14-36); BLOOD UREA NITROGEN 16 mg/dL (7-21); CALCIUM 9.5 mg/dL (8.4-10.5); GFR NON-AFRICAN AMERICAN > 60
[2018-03-03 13:39] LABS: URINE APPEARANCE CLEAR (CLEAR); URINE COLOR YELLOW (YELLOW)
--- NOTE | 2018-03-03 13:43 | RAD ---
Date of service: 03/03/2018 HISTORY: cough r/o infiltrate COMPARISON: 11/17/2016. FINDINGS: LUNGS: No active pulmonary disease. PLEURA: No significant pleural effusion identified, no pneumothorax apparent. CARDIOVASCULAR: No radiographic findings to suggest acute or significant cardiovascular disease. Atherosclerotic calcifications identified primarily aortic arch. OSSEOUS STRUCTURES: No significant abnormalities. VISUALIZED UPPER ABDOMEN: Normal. OTHER FINDINGS: None. IMPRESSION: No active disease. No significant interval change compared to the prior examination(s).
[2018-03-03 13:48] LABS: TROPONIN I < 0.01 ng/mL
[2018-03-03 14:07] LABS: T3 1.01 ng/mL (0.97-1.69)
[2018-03-03 14:36] VITALS: BP 137/62; PULSE 58; RESP 18; TEMP 97.6; O2SAT 98
--- NOTE | 2018-03-04 22:23 | CARD ---
APPROVED REPORT Date of service: 03/03/2018 EKG Measurement Heart [id number] MD [id number] <Conclusion> Sinus rhythm with premature atrial complexes Otherwise normal ECG
== END 2018-03-03 14:36 | disposition home or self-care (01) ==
LOC: ED 11:45
DX: M79.18 Myalgia, other site (principal); I10 Essential (primary) hypertension
CPT/HCPCS: 71045; 80053; 81003; 82550; 83615; 83735; 84443; 84480; 84484; 85025; 87086; 93005; 96374; 99285; J1885; J7030